=== PATIENT | female | born 2000 | race Caucasian/White ===

== ENCOUNTER 2023-07-27 23:38 | Emergency (ER) | payer BC, OTHER ==
[~2023-07-27] VITALS: Ht 162.6 cm; Wt 60.0 kg
[2023-07-27 23:59] VITALS: BP 128/72; PULSE 100; RESP 16; TEMP 98.4; O2SAT 98
[2023-07-28 00:37] LABS: CLARITY URINE CLOUDY (CLEAR); COLOR URINE YELLOW (YELLOW); GLUCOSE URINE NEGATIVE (NEGATIVE); KETONES URINE NEGATIVE (NEGATIVE); LEUKOCYTE ESTERASE URINE TRACE (NEGATIVE); NITRITE URINE NEGATIVE (NEGATIVE); OCCULT BLOOD URINE NEGATIVE (NEGATIVE); PH URINE 5.5 (4.5-8.0); PROTEIN URINE NEGATIVE (NEGATIVE); SPECIFIC GRAVITY URINE 1.024 (1.005-1.030)
[2023-07-28] MEDS: CEFTRIAXONE SODIUM 500MG VIAL IM ONE (00:45)
[2023-07-28] MEDS ORDERED: DOXY100T2 MT (01:02)
[2023-07-28 06:15] LABS: SQUAMOUS EPITHELIAL CELL URINE 1+ /lpf (RARE/1+)
[2023-07-28 06:17] LABS: RBC URINE NONE SEEN /hpf (0-2)
[2023-07-28 06:19] LABS: BACTERIA URINE TRACE
[2023-07-30 04:10] LABS: CHLAMYDIA TRACHOMATIS NAA Negative (Negative); NEISSERIA GONORRHOEAE NAA Negative (Negative)
== END 2023-07-28 01:45 | disposition home or self-care (01) ==
LOC: ER 23:38
DX: A64 Unspecified sexually transmitted disease (principal); R30.0 Dysuria
CPT/HCPCS: 99283; 81025; 87491; 87591; 81003; 87086; 96372; J0696